=== PATIENT | female | born 1980 | race Caucasian/White ===

== ENCOUNTER 2021-01-17 20:22 | Emergency (ER) | payer MEDICAID ==
[2021-01-17] MEDS ORDERED: Codeine/guaiFENesin 100mg-10 MG/5 ML Soln 118 ML Bottle PO ONE (20:23)
[2021-01-17] MEDS ORDERED: Codeine/guaiFENesin 10-100 MG/5 ML Syrup 5 ML Cup PO ONE (20:53)
--- NOTE | 2021-01-17 20:53 | EDM.PDOC ---
ED HPI GENERAL MEDICAL PROBLEM - General Chief Complaint: Respiratory Problem Stated Complaint: cough Time Seen by Provider: 01/17/21 20:35 Source of Information: Reports: Patient History Limitations: Reports: No Limitations - History of Present Illness INITIAL COMMENTS - FREE TEXT/NARRATIVE: pt tested positive for covid 3 days ago , has been c/ cough , SOB, gen weakness, she is her ambulatory w nl vitals and appear comfortable , denies any other medical concerns, she has quit smoking recently. - Related Data Allergies Allergy/AdvReac Type Severity Reaction Status Date / Time No Known Allergies Allergy Verified 01/17/21 20:43 Home Meds: Home Meds NK [No Known Home Meds] 01/17/21 [History] Social & Family History - Tobacco Use Tobacco Use Status *Q: Former Tobacco User Used Tobacco, but Quit: Yes Month/Year Tobacco Last Used: 2020 Second Hand Smoke Exposure: No - Caffeine Use Caffeine Use: Reports: Tea - Recreational Drug Use Recreational Drug Use: No ED ROS GENERAL - Review of Systems Review Of Systems: See Below Constitutional: Reports: Fever, Chills, Weakness HEENT: Reports: No Symptoms Respiratory: Reports: Shortness of Breath, Cough Cardiovascular: Reports: No Symptoms GI/Abdominal: Reports: No Symptoms Musculoskeletal: Reports: Joint Pain Skin: Reports: No Symptoms Neurological: Reports: No Symptoms ED EXAM, GENERAL - Physical Exam Exam: See Below Exam Limited By: No Limitations General Appearance: Alert, No Apparent Distress Eye Exam: Bilateral Eye: Normal Inspection Ears: Normal External Exam, Normal TMs Nose: Normal Inspection Throat/Mouth: Normal Inspection, Normal Oropharynx Head: Atraumatic, Normocephalic Neck: Normal Inspection, Supple Respiratory/Chest: No Respiratory Distress, No Accessory Muscle Use Cardiovascular: Normal Peripheral Pulses, Regular Rate, Rhythm GI/Abdominal: Normal Bowel Sounds, Soft, Non-Tender Back Exam: Normal Inspection Extremities: Normal Inspection, Normal Range of Motion Neurological: Alert, Oriented, No Motor/Sensory Deficits Skin Exam: Warm, Dry Course - Vital Signs Text/Narrative:: pt has mild resp sx with covid , supportive mng and Robitussin were recommended. Last Recorded V/S: Last Vital Signs Temp 37.9 C 01/17/21 20:35 Pulse 84 01/17/21 20:35 Resp 18 01/17/21 20:35 BP 115/73 01/17/21 20:35 Pulse Ox 97 10/30/21 20:35 Departure - Departure Time of Disposition: 20:52 Disposition: Home, Self-Care 01 Clinical Impression: COVID - Discharge Information Referrals: Dulce Bailey NP [Primary Care Provider] - Sepsis Event Note (ED) - Evaluation Sepsis Screening Result: No Definite Risk - Focused Exam Vital Signs: Vital Signs Temp Pulse Resp BP Pulse Ox 01/17/21 20:35 37.9 C 84 18 115/73 97
== END 2021-01-17 21:15 | disposition home or self-care (01) ==
LOC: FB.ED 20:22
DX: U07.1 COVID-19 (principal); Z87.891 Personal history of nicotine dependence
CPT/HCPCS: 99283; A9270